=== PATIENT | female | born 1985 | race African-American/Black ===

== ENCOUNTER 2016-12-10 16:54 | Emergency (ER) | payer MEDICAID ==
[~2016-12-10] VITALS: Ht 177.8 cm; Wt 102.5 kg
[2016-12-10 16:56] VITALS: Ht 177.8 cm; Wt 102.5 kg
[2016-12-10] MEDS ORDERED: ONDANSETRON 4 MG INJ IV STA (18:13)
[2016-12-10] MEDS ORDERED: SOD CHLORIDE 0.9% 1,000 ML IV STA (18:13)
[2016-12-10 18:42] LABS: BASOPHILS % 0.3 % (0.0-2.0); EOSINOPHILS % 0.2 % (0.0-7.0); HEMATOCRIT 44.1 % (37.0-47.0); HEMOGLOBIN 14.7 g/dl (12.0-16.0); LYMPHOCYTES # 1.9 10^3/ul (0.8-2.9); MEAN CORPUSCULAR HEMOGLOBIN 29.8 pg (29.0-33.0); MEAN CORPUSCULAR HGB CONC 33.3 g/dl (32.0-37.0); MEAN CORPUSCULAR VOLUME 89.5 fl (82.0-101.0); MEAN PLATELET VOLUME 9.5 fl (7.4-10.4); MONOCYTE # 0.9 10^3/ul (0.3-0.9); MONOCYTES % 8.2 % (0.0-11.0); NEUTROPHIL # 7.6 10^3/ul (1.6-7.5); PLATELET COUNT 329 10^3/UL (140-415); RED BLOOD COUNT 4.93 10^6/ul (4.20-5.40); RED CELL DISTRIBUTION WIDTH 12.9 % (11.5-14.5); WHITE BLOOD COUNT 10.4 10^3/ul (4.8-10.8)
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
[2016-12-10 18:54] LABS: ADD UMIC YES; UR ASCORBIC ACID NEGATIVE (NEGATIVE); UR BACTERIA FEW /HPF (NONE SEEN); UR BILIRUBIN (Dip) NEGATIVE (NEGATIVE); UR BLOOD (Dip) 2+ mg/dL (NEGATIVE); UR CLARITY CLOUDY (CLEAR); UR COLOR YELLOW (YELLOW); UR GLUCOSE (Dip) NEGATIVE (NEGATIVE); UR KETONES (Dip) NEGATIVE (NEGATIVE); UR LEUKOCYTE ESTERASE (Dip) 3+ Leu/ul (NEGATIVE); UR MUCUS FEW /HPF (NONE SEEN); UR NITRITE (Dip) NEGATIVE (NEGATIVE); UR RBC 4 /HPF (0-5); UR SPECIFIC GRAVITY (Dip) 1.016 (1.003-1.030); UR SQUAMOUS EPITHELIAL CELL FEW /HPF (FEW); UR TOTAL PROTEIN (Dip) 2+ mg/dl (NEGATIVE); UR UROBILINOGEN (Dip) NEGATIVE (NEGATIVE); UR WBC CLUMPS FEW /HPF (NONE SEEN)
[2016-12-10 19:01] LABS: ALBUMIN 4.5 g/dl (3.3-4.9); ALBUMIN/GLOBULIN RATIO 1.15; BILIRUBIN,INDIRECT 0.2 mg/dl (0-1.1); BILIRUBIN,TOTAL 0.2 mg/dl (0.2-1.3); CALCIUM 9.8 mg/dl (8.4-10.2); CREATININE 0.96 mg/dl (0.44-1.00); POTASSIUM 3.1 mmol/L (3.5-5.1); TOTAL PROTEIN 8.4 g/dl (6.1-8.1)
[2016-12-10] MEDS ORDERED: POTASSIUM CHLORIDE (SR) 20 MEQ TAB PO STA (19:16)
[2016-12-10] MEDS ORDERED: FAMO-96 PO (19:25)
[2016-12-10] MEDS ORDERED: HYDR-906 PO (19:25)
[2016-12-10] MEDS ORDERED: ONDA8TAB14 PO (19:25)
[2016-12-10] MEDS ORDERED: CEPH-443 PO (19:27)
[2016-12-10] MEDS ORDERED: CEPHALEXIN 500 MG CAP PO ONE (19:30)
[2016-12-10] MEDS ORDERED: FAMOTIDINE 20 MG TAB PO ONE (19:30)
[2016-12-10] MEDS ORDERED: HYDROCODONE/APAP (5/325) TAB PO ONE (19:30)
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
[2016-12-10 20:48] VITALS: BP 135/87; PULSE 92; RESP 14; TEMP 98.9
== END 2016-12-10 22:15 | disposition home or self-care (01) ==
LOC: FTE 16:54
DX: S80.11XA Contusion of right lower leg, initial encounter (principal); S80.12XA Contusion of left lower leg, initial encounter; S40.021A Contusion of right upper arm, initial encounter; S40.022A Contusion of left upper arm, initial encounter; R11.10 Vomiting, unspecified; V49.50XA Passenger injured in collision with unspecified motor vehicles in traffic accident, initial encounter
CPT/HCPCS: 36415; 76705; 80053; 81001; 83690; 85025; 96374; J2405; J7030; Z7502; Z7610

== ENCOUNTER 2016-12-12 00:57 | Emergency (ER) | payer MEDICAID ==
[~2016-12-12] VITALS: Ht 167.6 cm; Wt 102.0 kg
[~2016-12-12 00:57] MED LIST: CEPH-443 PO; FAMO-96 PO; HYDR-906 PO; ONDA8TAB14 PO
[2016-12-12 01:02] VITALS: Ht 167.6 cm; Wt 102.0 kg
[2016-12-12] MEDS ORDERED: ONDANSETRON 4 MG INJ IV STA (01:43)
[2016-12-12] MEDS ORDERED: morphine 4 MG/ML VIAL IV STA (01:43)
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
[2016-12-12] MEDS ORDERED: SOD CHLORIDE 0.9% 100 ML ONE (03:18)
[2016-12-12] MEDS ORDERED: IOHEXOL 300MG/ML 150 ML BTL ONE (03:18)
[2016-12-12 04:05] LABS: ADD UMIC YES; UR ASCORBIC ACID NEGATIVE (NEGATIVE); UR BILIRUBIN (Dip) NEGATIVE (NEGATIVE); UR BLOOD (Dip) 1+ mg/dL (NEGATIVE); UR CLARITY SLIGHTLY CLOUDY (CLEAR); UR COLOR YELLOW (YELLOW); UR GLUCOSE (Dip) NEGATIVE (NEGATIVE); UR KETONES (Dip) TRACE mg/dL (NEGATIVE); UR LEUKOCYTE ESTERASE (Dip) NEGATIVE Leu/ul (NEGATIVE); UR MUCUS FEW /HPF (NONE SEEN); UR NITRITE (Dip) NEGATIVE (NEGATIVE); UR RBC 3 /HPF (0-5); UR SPECIFIC GRAVITY (Dip) 1.016 (1.003-1.030); UR SQUAMOUS EPITHELIAL CELL FEW /HPF (FEW); UR TOTAL PROTEIN (Dip) NEGATIVE (NEGATIVE); UR UROBILINOGEN (Dip) 1+ mg/dL (NEGATIVE)
[2016-12-12 04:17] LABS: BASOPHILS % 0.7 % (0.0-2.0); EOSINOPHILS % 0.3 % (0.0-7.0); HEMATOCRIT 41.7 % (37.0-47.0); HEMOGLOBIN 13.7 g/dl (12.0-16.0); LYMPHOCYTES # 1.9 10^3/ul (0.8-2.9); LYMPHOCYTES % 31.2 % (15.0-51.0); MEAN CORPUSCULAR HEMOGLOBIN 29.2 pg (29.0-33.0); MEAN CORPUSCULAR HGB CONC 32.9 g/dl (32.0-37.0); MEAN CORPUSCULAR VOLUME 88.9 fl (82.0-101.0); MEAN PLATELET VOLUME 9.9 fl (7.4-10.4); MONOCYTE # 0.5 10^3/ul (0.3-0.9); NEUTROPHIL # 3.5 10^3/ul (1.6-7.5); NEUTROPHILS % 58.1 % (39.0-77.0); PLATELET COUNT 329 10^3/UL (140-415); RED BLOOD COUNT 4.69 10^6/ul (4.20-5.40); RED CELL DISTRIBUTION WIDTH 12.7 % (11.5-14.5)
[2016-12-12 05:26] VITALS: TEMP 98.5
[2016-12-12 05:34] LABS: ALBUMIN 4.2 g/dl (3.3-4.9); ALBUMIN/GLOBULIN RATIO 1.2; BILIRUBIN,INDIRECT 0.2 mg/dl (0-1.1); BILIRUBIN,TOTAL 0.2 mg/dl (0.2-1.3); CALCIUM 9.6 mg/dl (8.4-10.2); CREATININE 0.8 mg/dl (0.44-1.00); POTASSIUM 3.6 mmol/L (3.5-5.1); TOTAL PROTEIN 7.7 g/dl (6.1-8.1)
[2016-12-12] MEDS ORDERED: HYDROmorphONE 1 MG/ML SYG IV STA (07:20)
[2016-12-12 07:50] VITALS: BP 122/89; PULSE 75; RESP 17
[2016-12-12] MEDS ORDERED: HYDROmorphONE 1 MG/ML SYG ONE (08:07)
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
--- NOTE | 2016-12-12 09:08 | RADRPT ---
PROCEDURE: CT ABDOMEN/PELVIS WITH CONTRAST CLINICAL INDICATION: 31-year-old female with abdominal pain following trauma. TECHNIQUE: The study was performed utilizing a GE [employer] VCT 64-slice CT scanner. Direct axia l sections were obtained through the abdomen and pelvis with the use of 100 cc of Omnipaque-300 carlos onic intravenous contrast material. Sagittal and coronal reformations were obtained. One or more of the following dose reduction techniques were utilized: automated exposure control, adjustment of the mA and/or kV according to patient's size or use of iterative reconstruction technique. The images were reviewed on a PACS workstation. CTD/vol = 22.4 mGy; Total Exam DLP = 1421.5 mGy-cm. COMPARISON: Ultrasound abdominal FAST scan December 10, 2016. FINDINGS: There is minimal bibasilar subsegmental atelectasis. There is no evidence for significant pleural e ffusion. The liver has a normal size and contour. There is mild diffuse decreased density and heter ogeneous appearance to the anterior aspect of the right lobe of the liver seen best on axial image 3 -42 measuring approximate 3.1 x 3.1 x 4.5 cm consistent with a hepatic contusion/hematoma. This has consistent with AAST organ injury severity scale grade III. No intrahepatic nor extrahepatic biliary ductal dilatation is seen. The gallbladder demonstrates no wall thickening nor pericholecystic flui d. No biliary stones are evident. The pancreas is without areas of abnormal attenuation or contrast enhancement. This spleen is identified and has a normal size without abnormal density or contrast e nhancement. The adrenal glands are unremarkable. The kidneys are functional bilaterally without abno rmal density. No hydroureteronephrosis nor nephroureterolithiasis is evident. The urinary bladder contains urine. There is mild diffuse thickening of the distal esophagus. There is a small hiatal he rnia. There is no evidence for bowel obstruction. There is a small diverticula identified within the mesenteric border of the hepatic flexure without surrounding inflammatory changes. The appendix is visualized and is without edema or surrounding inflammatory reaction. The uterus is elongated and a nteflexed. There is a tampon identified within the vaginal canal. There is no significant free fluid . The aortoiliac vessels are without aneurysmal dilatation. The osseous structures are intact. IMPRESSION: 1. Diffuse decrease heterogeneous density anterior aspect of the right lobe of the liver consisten t with a hepatic contusion/hematoma AAST organ injury severity scale grade III. 2. Mild diffuse thickening of the distal esophagus with a small hiatal hernia. 3. Small solitary hepatic flexure diverticula without surrounding inflammatory changes. 4. Tampon within the vaginal vault. CRITICAL RESULTS: A call report was made to [facility] FRANSISCA Jaime on December 12, 2016 at 04 :49 a.m. .Lon Orta MD, MD Date Time Electronically viewed and signed by .Lon Orta MD, MD on 12/12/2016 04:54 .M/
== END 2016-12-12 14:38 | disposition short-term general hospital (02) ==
LOC: FTE 00:57 → E/R 14:38
DX: S20.211A Contusion of right front wall of thorax, initial encounter (principal); S36.112A Contusion of liver, initial encounter; S06.0X0A Concussion without loss of consciousness, initial encounter; V49.10XA Passenger injured in collision with unspecified motor vehicles in nontraffic accident, initial encounter
CPT/HCPCS: 36415; 70450; 71010; 71100; 74177; 80053; 81001; 83690; 85025; 96374; 96375; J1170; J2270; J2405; Q9967; Z7502; Z7610

== ENCOUNTER 2018-04-24 04:13 | Emergency (ER) | payer MEDICAID ==
[~2018-04-24] VITALS: Ht 180.3 cm; Wt 105.0 kg
[~2018-04-24 04:13] MED LIST changes: +HYDR-4011 PO; -HYDR-906 PO
[2018-04-24 04:20] VITALS: Ht 180.3 cm; Wt 105.0 kg
[2018-04-24] MEDS ORDERED: ONDANSETRON (ODT) 4 MG TAB ODT STA ×2 (04:44→05:10)
[2018-04-24] MEDS ORDERED: D-ME473S2 PO (04:47)
[2018-04-24] MEDS ORDERED: ONDA4TAB14 PO (04:47)
[2018-04-24] MEDS ORDERED: ACET500C5 PO (04:47)
[2018-04-24] MEDS ORDERED: OSEL75CA23 PO (04:47)
--- NOTE | 2018-04-24 04:51 | ERD ---
ER Documentation Chief Complaint Chief Complaint flu like symptoms HPI This is a 32-year-old female who presents ED with flulike symptoms for the past couple days. Patient admits to body aches, headache, fevers, runny nose, cough, congestion and nausea and vomiting. Patient admits to having 2 episodes of nonbilious nonbloody vomiting. Admits to having some chest discomfort with prolonged coughing spell. Denies abdominal pain, chest pain, shortness of breath, trouble breathing and all other symptoms. ROS All systems reviewed and are negative except as per history of present illness. Medications Home Meds Active Scripts Dextromethorphan Hb-Promethazine Hcl* (Promethazine DM* Syrup) 473 Ml Syrup, 5 ML PO Q6 PRN for COUGH for 5 Days, ML Prov:HAMLET DC PA-C 04/24/18 Ondansetron (Ondansetron Odt) 4 Mg Tab.rapdis, 4 MG PO Q6H PRN for NAUSEA AND/OR VOMITING, #10 TAB Prov:HAMLET DC PA-C 04/24/18 Acetaminophen* (Tylophen*) 500 Mg Capsule, 2 CAP PO Q8H PRN for PAIN AND OR ELEVATED TEMP, #20 CAP Prov:HAMLET DC PA-C 04/24/18 Oseltamivir Phosphate* (Tamiflu*) 75 Mg Capsule, 75 MG PO BID for 5 Days, CAP Prov:HAMLET DC PA-C 04/24/18 Cephalexin* (Keflex*) 500 Mg Capsule, 500 MG PO QID for 5 Days, CAP Prov:CLAUDIA PATEL MD 12/10/16 Famotidine* (Pepcid*) 20 Mg Tablet, 20 MG PO BID for 7 Days, #14 TAB Prov:CLAUDIA PATEL MD 12/10/16 Hydrocodone/Acetaminophen ([place] 5-325 Tablet) 1 Each Tablet, 1 TAB PO Q6H PRN for PAIN, #7 TAB Prov:CLAUDIA PATEL MD 12/10/16 Ondansetron (Ondansetron Odt) 8 Mg Tab.rapdis, 8 MG PO Q6H PRN for NAUSEA AND/OR VOMITING, #8 TAB Prov:CLAUDIA PATEL MD 12/10/16 Allergies Allergies: Coded Allergies: bee venom protein (honey bee) (Verified Allergy, Unknown, 04/24/18) codeine (Verified Allergy, Unknown, SWELLING, 04/24/18) PMhx/Soc History of Surgery: Yes (TUBAL X 2 ) Anesthesia Reaction: No Hx Neurological Disorder: No Hx Respiratory Disorders: No Hx Cardiac Disorders: No Hx Psychiatric Problems: No Hx Miscellaneous Medical Probl: No Hx Alcohol Use: Yes (social) Hx Substance Use: No Hx Tobacco Use: No Smoking Status: Current every day smoker FmHx Family History: No diabetes Physical Exam Vitals Vital Signs Date Temp Pulse Resp B/P (MAP) Pulse Ox O2 O2 Flow FiO2 Time Delivery Rate 04/24/18 97.8 116 16 134/95 98 04:20 (108) Physical Exam Physical Exam Vitals signs: Reviewed by me. General: Well developed, well nourished, in no acute distress. Patient is awake and alert. Head: Normocephalic, atraumatic. Eyes: Normal conjunctiva, Pupils PERRLA, EOM intact grossly ENT: Pharynx is clear, Moist mucous membranes, external ears, nose and mouth normal Neck: Supple, no masses, lymphadenopathy or JVD Respiratory: Clear to auscultation bilaterally with no wheezing, rhonchi, rales, no distress Cardiovascular: RRR, no murmurs, rubs, or gallops Abdominal: Soft, non-tender, non-distended, no peritoneal signs : Deferred Neurologic: Alert and oriented, moving all extremities, normal speech, no focal weakness, no cerebellar signs. Normal mentation Skin: warm and dry, No rash Psych: Normal mood Results 24 hrs Current Medications Medications Dose Sig/Noa Start Time Status Last (Trade) Ordered Route PRN Stop Time Admin Dose Reason Admin Ondansetron 4 mg ONCE STAT 04/24/18 DC HCl (Zofran ODT 04:44 Odt) 04/24/18 04:46 Promethazine 5 ml ONCE ONCE 04/24/18 HCl/ PO 05:00 Dextromethorp 04/24/18 05:01 reyes (Phenergan-Dm ) 1,000 mg ONCE STAT 04/24/18 DC Acetaminophen PO 04:44 (Tylenol 04/24/18 04:46 Tab) Procedures/MDM ER COURSE: The patient was given promethazine DM, Tylenol, Zofran The medication was well tolerated and the patient reports improvement in symptoms. The patient was stable throughout ED course. I kept the patient and/or family informed of laboratory and diagnostic imaging results throughout the emergency room course. The patient was promptly evaluated and a treatment plan was devised based on H&P and other data. This plan was discussed with the patient who agreed and had no further questions or concerns prior to discharge. MEDICAL DECISION MAKING: This is a 32-year-old female presents ED with flulike symptoms for LIKE 3 days. Given history and physical examination this is likely influenza.. No evidence of pneumonia. The patient is well-appearing without respiratory distress. Normal oxygen sa turation. X-ray imaging not indicated. The patient does not exhibit any clinical signs or symptoms concerning for serious bacterial infection or systemic illness. Based on history and clinical exam findings the patient does not appear to have evidence of pneumonia, strep pharyngitis, urinary tract infection, bacteremia, sepsis, or meningitis. For these reasons I do not believe it is necessary to obtain laboratory testing or diagnostic imaging. I believe it would be appropriate for symptom control, and close outpatient primary care follow-up. We discussed follow up with the patient's primary care doctor within 24 to 48 hours as needed. We also discussed return to the emergency room for worsening symptoms or worsening condition. DISPOSITION PLAN: We discussed follow up with the patient's primary care doctor within 24 to 48 hours. Patient counseled regarding my diagnostic impression and care plan. Prior to discharge all questions answered. Pt agrees with treatment plan and understands strict return precautions. Precautionary instructions provided including instructions to return to the ER if not improving or for any worsening or changing symptoms or concerns. SPECIALIST FOLLOW UP RECOMMENDED: None Patient has been advised to follow up with primary care in 1-2 days. Disclaimer: Inadvertent spelling and grammatical errors are likely due to EHR/dictation software use and do not reflect on the overall quality of patient care. Also, please note that the electronic time recorded on this note does not necessarily reflect the actual time of the patient encounter. Blood Pressure Assessment: Patient's blood pressure was elevated (>120/80) but appears stable without evidence of hypertension emergency or urgency. The patient was counseled about the risks of hypertension and urged to pursue outpatient monitoring and therapy within a week with their primary care physician. Departure Diagnosis: Primary Impression: Influenza Condition: Stable Patient Instructions: Influenza (Adult) Referrals: COMMUNITY CLINICS YOU HAVE RECEIVED A MEDICAL SCREENING EXAM AND THE RESULTS INDICATE THAT YOU DO NOT HAVE A CONDITION THAT REQUIRES URGENT TREATMENT IN THE EMERGENCY DEPARTMENT. FURTHER EVALUATION AND TREATMENT OF YOUR CONDITION CAN WAIT UNTIL YOU ARE SEEN IN YOUR DOCTORS OFFICE WITHIN THE NEXT 1-2 DAYS. IT IS YOUR RESPONSIBILITY TO MAKE AN APPOINTMENT FOR FOLOW-UP CARE. IF YOU HAVE A PRIMARY DOCTOR --you should call your primary doctor and schedule an appointment IF YOU DO NOT HAVE A PRIMARY DOCTOR YOU CAN CALL OUR PHYSICIAN REFERRAL HOTLINE AT IF YOU CAN NOT AFFORD TO SEE A PHYSICIAN YOU CAN CHOSE FROM THE FOLLOWING [facility] [address] [facility] [address] [facility] [facility] [address] [facility] [address]. [facility] [address] [facility]. [facility] [address] Additional Instructions: Patient advised to return to the ED immediately for new or worsening symptoms. Patient advised to follow up with primary care provider in the next 24-48 hours. Patient verbalized understanding and agrees with treatment plan and course of action. If patient has no primary care they may follow up with one of the [facility] listed on the following page or one of the options listed below [facility] [address] [place] [address] or [facility] [address] [place] [address] or [facility] [address] [place] [address] HAMLET DC PA-C Apr 24, 2018 04:51
[2018-04-24] MEDS ORDERED: PROMETHAZINE/DM (CUP) PO ONE (05:00)
[2018-04-24] MEDS: ACETAMINOPHEN 500 MG TAB PO STA ×2 (05:02→05:07)
[2018-04-24] MEDS ORDERED: METOCLOPRAMIDE 10 MG INJ IM ONE (05:30)
[2018-04-24 05:58] VITALS: BP 131/88; PULSE 108; RESP 22
[2018-04-24] MEDS ORDERED: ONDA4TAB8 PO (09:09)
== END 2018-04-24 06:20 | disposition home or self-care (01) ==
LOC: FTE 04:13
DX: J10.1 Influenza due to other identified influenza virus with other respiratory manifestations (principal); F17.210 Nicotine dependence, cigarettes, uncomplicated
CPT/HCPCS: 96372; J2765; Z7502; Z7610

== ENCOUNTER 2018-04-24 07:41 | Emergency (ER) | payer MEDICAID ==
[~2018-04-24] VITALS: Ht 180.3 cm; Wt 110.2 kg
[~2018-04-24 07:41] MED LIST changes: +ACET500C5 PO; +D-ME473S2 PO; +ONDA4TAB14 PO; +OSEL75CA23 PO
[2018-04-24 07:45] VITALS: Ht 180.3 cm; Wt 110.2 kg
[2018-04-24] MEDS ORDERED: ONDANSETRON 4 MG INJ IV STA (08:22)
[2018-04-24] MEDS ORDERED: SOD CHLORIDE 0.9% 1,000 ML IV STA (08:22)
[2018-04-24] MEDS ORDERED: ONDA4TAB8 PO (09:09)
--- NOTE | 2018-04-24 09:11 | ERD ---
ER Documentation Chief Complaint Chief Complaint FLU LIKE SYMPTOMS, VOMITING, CHEST PAIN X 3 DAYS HPI 32-year-old female presents the emergency department complaining of nausea and vomiting for the last 3 days. Patient states that over the last 3 days, she has had flulike symptoms with body aches myalgias and a nonproductive cough. She has had nonbilious, nonbloody emesis. She reports no localizing abdominal pain. She reports no shortness of breath. She states she continues to feel nauseous and came to the emergency department for evaluation after oral Zofran was not making it better. ROS All systems reviewed and are negative except as per history of present illness. Medications Home Meds Active Scripts Ondansetron Hcl* (Zofran*) 4 Mg Tablet, 4 MG PO Q8H PRN for NAUSEA AND/OR VOMITING, #30 TAB Prov:DINA BENITES 04/24/18 Dextromethorphan Hb-Promethazine Hcl* (Promethazine DM* Syrup) 473 Ml Syrup, 5 ML PO Q6 PRN for COUGH for 5 Days, ML Prov:HAMLET DC PA-C 04/24/18 Ondansetron (Ondansetron Odt) 4 Mg Tab.rapdis, 4 MG PO Q6H PRN for NAUSEA AND/OR VOMITING, #10 TAB Prov:HAMLET DC PA-C 04/24/18 Acetaminophen* (Tylophen*) 500 Mg Capsule, 2 CAP PO Q8H PRN for PAIN AND OR ELEVATED TEMP, #20 CAP Prov:HAMLET DC PA-C 04/24/18 Oseltamivir Phosphate* (Tamiflu*) 75 Mg Capsule, 75 MG PO BID for 5 Days, CAP Prov:HAMLET DC PA-C 04/24/18 Cephalexin* (Keflex*) 500 Mg Capsule, 500 MG PO QID for 5 Days, CAP Prov:CLAUDIA PATEL MD 12/10/16 Famotidine* (Pepcid*) 20 Mg Tablet, 20 MG PO BID for 7 Days, #14 TAB Prov:CLAUDIA PATEL MD 12/10/16 Hydrocodone/Acetaminophen ([place] 5-325 Tablet) 1 Each Tablet, 1 TAB PO Q6H PRN for PAIN, #7 TAB Prov:CLAUDIA PATEL MD 12/10/16 Ondansetron (Ondansetron Odt) 8 Mg Tab.rapdis, 8 MG PO Q6H PRN for NAUSEA AND/OR VOMITING, #8 TAB Prov:CLAUDIA PATEL MD 12/10/16 Allergies Allergies: Coded Allergies: bee venom protein (honey bee) (Verified Allergy, Unknown, 04/24/18) codeine (Verified Allergy, Unknown, SWELLING, 04/24/18) PMhx/Soc History of Surgery: Yes (TUBAL X 2; oophorectomy ) Anesthesia Reaction: No Hx Neurological Disorder: No Hx Respiratory Disorders: No Hx Cardiac Disorders: No Hx Psychiatric Problems: No Hx Miscellaneous Medical Probl: No Hx Alcohol Use: Yes (social) Hx Substance Use: Yes (marijuana) Hx Tobacco Use: Yes (occasional) Smoking Status: Current some day smoker FmHx Multiple sick contacts at home Physical Exam Vitals Vital Signs Date Temp Pulse Resp B/P (MAP) Pulse Ox O2 O2 Flow FiO2 Time Delivery Rate 04/24/18 116 26 133/86 98 Room Air 08:15 (102) 04/24/18 98.1 110 20 128/94 98 07:45 (105) Physical Exam GENERAL: The patient is well developed and appropriate for usual state of health in no apparent distress HEENT: Pupils equal, round, and reactive to light. EOMI. There is no scleral icterus. NECK: C-spine is soft and supple, there is no meningismus. There is no cervical lymphadenopathy. LUNGS: Clear to auscultation bilaterally. There are no rales, wheezes or rhonchi. HEART: Regular rate and rhythm, no murmurs, clicks, rubs or gallops. ABDOMEN: Soft, non-tender, non-distended. There are bowel sounds in all four quadrants. No rebound or guarding. EXTREMITIES: There is no peripheral cyanosis or edema. No focal swelling or erythema. NEURO: The patient moves all four extremities with 5/5 strength. Cranial nerves II - XII are intact. Normal gait. Alert and oriented SKIN: There is no apparent rash or petechiae. HEME/LYMPHATIC: There is no evidence of excessive bruising or lymphedema. PSYCHIATRIC: The patient does not appear anxious or depressed. Result Diagram: 04/24/18 0822 04/24/18 0830 Results 24 hrs Laboratory Tests Test 04/24/18 08:18 04/24/18 08:22 04/24/18 08:30 POC Beta HCG, Qualitative NEGATIVE White Blood Count 10.3 10^3/ul Red Blood Count 5.14 10^6/ul Hemoglobin 15.4 g/dl Hematocrit 46.9 % Mean Corpuscular Volume 91.2 fl Mean Corpuscular Hemoglobin 30.0 pg Mean Corpuscular 32.8 g/dl Hemoglobin Concent Red Cell Distribution Width 12.9 % Platelet Count 290 10^3/UL Mean Platelet Volume 10.3 fl Immature Granulocytes % 0.300 % Neutrophils % 72.1 % Lymphocytes % 15.5 % Monocytes % 11.1 % Eosinophils % 0.2 % Basophils % 0.8 % Nucleated Red Blood Cells % 0.0 /100WBC Immature Granulocytes # 0.030 10^3/ul Neutrophils # 7.4 10^3/ul Lymphocytes # 1.6 10^3/ul Monocytes # 1.1 10^3/ul Eosinophils # 0.0 10^3/ul Basophils # 0.1 10^3/ul Nucleated Red Blood Cells # 0.0 10^3/ul Sodium Level 141 mmol/L Potassium Level 5.8 mmol/L Chloride Level 101 mmol/L Carbon Dioxide Level 24 mmol/L Anion Gap 16 Blood Urea Nitrogen 13 mg/dl Creatinine 0.80 mg/dl Est Glomerular Filtrat Rate mL/min > 60 mL/min Glucose Level 81 mg/dl Calcium Level 9.7 mg/dl Current Medications Medications Dose Sig/Noa Start Time Status Last (Trade) Ordered Route PRN Stop Time Admin Dose Reason Admin Sodium 1,000 ml @ Q1H STAT 04/24/18 04/24/18 Chloride 1,000 mls/hr IV 08:22 08:35 04/24/18 09:21 Ondansetron 4 mg ONCE STAT 04/24/18 DC 04/24/18 HCl (Zofran IV 08:22 08:35 Inj) 04/24/18 08:24 Procedures/MDM Patient was taken to a room, seen and evaluated. Comfort measures were initiated. Diagnostic tests were ordered and reviewed. RADIOLOGY: Reviewed with the radiologist REEVALUATION: Diagnostic tests were appreciated. After hydration, patient appeared better. She remained stable. MEDICAL DECISION MAKIN-year-old otherwise healthy female presents with what appears to be a viral syndrome. After supportive care, patient seems to be improved. Her diagnostic tests show no evidence of significant electrolyte concern, no evidence of severe dehydration, no evidence of pneumonia. Departure Diagnosis: Primary Impression: Viral syndrome Condition: Stable Patient Instructions: Nausea and Vomiting-Adult, Viral Syndrome (Adult) Additional Instructions: See your doctor for follow-up as discussed. Take a copy of your test results, if appropriate, to this follow-up visit. See your doctor or return here if your symptoms do not improve as expected. At any time, please return to the emergency department for any change or worsening in her symptoms. DINA BENITES Apr 24, 2018 09:11
[2018-04-24 09:24] VITALS: BP 119/90; PULSE 89; RESP 17
== END 2018-04-24 09:26 | disposition home or self-care (01) ==
LOC: E/R 07:41
DX: B34.9 Viral infection, unspecified (principal); F17.210 Nicotine dependence, cigarettes, uncomplicated
CPT/HCPCS: 36415; 71045; 80048; 81025; 85025; 93005; 96361; 96374; J2405; J7030; Z7502

== ENCOUNTER 2018-06-27 01:41 | Emergency (ER) | payer SELFPAY ==
[~2018-06-27] VITALS: Ht 180.3 cm; Wt 105.9 kg
[~2018-06-27 01:41] MED LIST changes: +ONDA4TAB8 PO
[2018-06-27 01:49] VITALS: BP 141/57; PULSE 109; RESP 16; Ht 180.3 cm; Wt 105.9 kg
[2018-06-27] MEDS ORDERED: ONDA4TAB14 PO (18:28)
== END 2018-06-27 03:30 | disposition left against medical advice (07) ==
LOC: FTE 01:41
DX: Z53.21 Procedure and treatment not carried out due to patient leaving prior to being seen by health care provider (principal)

== ENCOUNTER 2018-06-27 13:40 | Emergency (ER) | payer MEDICAID ==
[~2018-06-27] VITALS: Ht 180.3 cm; Wt 106.5 kg
[2018-06-27 13:47] VITALS: Ht 180.3 cm; Wt 106.5 kg
[2018-06-27] MEDS ORDERED: ONDANSETRON (ODT) 4 MG TAB ODT STA (18:14)
[2018-06-27] MEDS ORDERED: ONDA4TAB14 PO (18:28)
[2018-06-27] MEDS ORDERED: LIDOCAINE/MYLANTA 40 ML BTL PO ONE (18:30)
[2018-06-27 18:56] VITALS: BP 135/86; PULSE 91; RESP 18
--- NOTE | 2018-06-27 19:13 | ERD ---
ER Documentation Chief Complaint Chief Complaint Vomiting, weakness X 2 days HPI Patient is a 32-year-old female with no medical problems who presents feeling sick. She said that she has felt sick for the past 2 days. She had nausea and vomiting. She was shaking. She says that she cannot keep anything down. She tried [place]. She has subjective chills but no fevers. She has diarrhea as well. She has no sick contacts. Upon review of old medical records the patient has multiple visits to the ER for various complaints. She does not currently have a primary doctor. ROS All systems reviewed and are negative except as per history of present illness. Medications Home Meds Active Scripts Ondansetron (Ondansetron Odt) 4 Mg Tab.rapdis, 4 MG PO Q6H PRN for NAUSEA AND/OR VOMITING, #10 TAB Prov:BARBER CASTILLO MD 06/27/18 Ondansetron Hcl* (Zofran*) 4 Mg Tablet, 4 MG PO Q8H PRN for NAUSEA AND/OR VOMITING, #30 TAB Prov:DINA BENITES 04/24/18 Dextromethorphan Hb-Promethazine Hcl* (Promethazine DM* Syrup) 473 Ml Syrup, 5 ML PO Q6 PRN for COUGH for 5 Days, ML Prov:HAMLET DC PA-C 04/24/18 Ondansetron (Ondansetron Odt) 4 Mg Tab.rapdis, 4 MG PO Q6H PRN for NAUSEA AND/OR VOMITING, #10 TAB Prov:HAMLET DC PA-C 04/24/18 Acetaminophen* (Tylophen*) 500 Mg Capsule, 2 CAP PO Q8H PRN for PAIN AND OR ELEV ATED TEMP, #20 CAP Prov:HAMLET DC PA-C 04/24/18 Oseltamivir Phosphate* (Tamiflu*) 75 Mg Capsule, 75 MG PO BID for 5 Days, CAP Prov:HAMLET DC PA-C 04/24/18 Cephalexin* (Keflex*) 500 Mg Capsule, 500 MG PO QID for 5 Days, CAP Prov:CLAUDIA PATEL MD 12/10/16 Famotidine* (Pepcid*) 20 Mg Tablet, 20 MG PO BID for 7 Days, #14 TAB Prov:CLAUDIA PATEL MD 12/10/16 Hydrocodone/Acetaminophen ([place] 5-325 Tablet) 1 Each Tablet, 1 TAB PO Q6H PRN for PAIN, #7 TAB Prov:CLAUDIA PATEL MD 12/10/16 Ondansetron (Ondansetron Odt) 8 Mg Tab.rapdis, 8 MG PO Q6H PRN for NAUSEA AND/OR VOMITING, #8 TAB Prov:CLAUDIA PATEL MD 12/10/16 Allergies Allergies: Coded Allergies: bee venom protein (honey bee) (Verified Allergy, Unknown, 04/24/18) codeine (Verified Allergy, Unknown, SWELLING, 04/24/18) PMhx/Soc History of Surgery: Yes (TUBAL X 2; oophorectomy ) Anesthesia Reaction: No Hx Neurological Disorder: No Hx Respiratory Disorders: No Hx Cardiac Disorders: No Hx Psychiatric Problems: No Hx Miscellaneous Medical Probl: No Hx Alcohol Use: Yes (social) Hx Substance Use: Yes (marijuana) Hx Tobacco Use: Yes (occasional) Smoking Status: Current every day smoker FmHx Family History: diabetes Physical Exam Vitals Vital Signs Date Temp Pulse Resp B/P (MAP) Pulse Ox O2 O2 Flow FiO2 Time Delivery Rate 06/27/18 99.9 91 18 135/86 98 Room Air 18:56 (102) 06/27/18 98.2 104 18 139/88 98 13:47 (105) Physical Exam Const: No acute distress Head: Atraumatic Eyes: Normal Conjunctiva ENT: Normal External Ears, Nose and Mouth. Neck: Full range of motion. No meningismus. Resp: Clear to auscultation bilaterally Cardio: Regular rate and rhythm, no murmurs Abd: Soft, non tender, non distended. Normal bowel sounds Skin: No petechiae or rashes Back: No midline or flank tenderness Ext: No cyanosis, or edema Neur: Awake and alert Psych: Normal Mood and Affect Results 24 hrs Laboratory Tests Test 06/27/18 18:27 POC Beta HCG, Qualitative NEGATIVE Current Medications Medications Dose Sig/Noa Start Time Status Last (Trade) Ordered Route PRN Stop Time Admin Dose Reason Admin Ondansetron 4 mg ONCE STAT 06/27/18 DC 06/27/18 HCl (Zofran ODT 18:14 06/27/18 18:35 Odt) 18:15 40 ml ONCE ONCE 06/27/18 DC 06/27/18 Miscellaneous PO 18:30 06/27/18 18:35 Medication 18:31 (Gi Cocktail (2)) Procedures/MDM Patient is a 32-year-old female who presents with nausea and vomiting. The patient is well-appearing with a normal physical exam. Urine test is negative and I doubt or ectopic . I doubt appendicitis, cholecystitis, pancreatitis, or bowel obstruction. The patient will be discharged and can take ibuprofen or Tylenol as needed for pain. She will be given a prescription for Zofran. She can return for any worsening symptoms. I believe the patient likely has a viral syndrome. Departure Diagnosis: Primary Impression: Viral syndrome Additional Impression: Vomiting Vomiting type: unspecified Vomiting Intractability: non-intractable Nausea presence: with nausea Qualified Codes: R11.2 - Nausea with vomiting, unspecified Condition: Fair Patient Instructions: Vomiting (5Y-Adult) Referrals: [facility] YOU HAVE RECEIVED A MEDICAL SCREENING EXAM AND THE RESULTS INDICATE THAT YOU DO NOT HAVE A CONDITION THAT REQUIRES URGENT TREATMENT IN THE EMERGENCY DEPARTMENT. FURTHER EVALUATION AND TREATMENT OF YOUR CONDITION CAN WAIT UNTIL YOU ARE SEEN IN YOUR DOCTORS OFFICE WITHIN THE NEXT 1-2 DAYS. IT IS YOUR RESPONSIBILITY TO MAKE AN APPOINTMENT FOR FOLOW-UP CARE. IF YOU HAVE A PRIMARY DOCTOR --you should call your primary doctor and schedule an appointment IF YOU DO NOT HAVE A PRIMARY DOCTOR YOU CAN CALL OUR PHYSICIAN REFERRAL HOTLINE AT IF YOU CAN NOT AFFORD TO SEE A PHYSICIAN YOU CAN CHOSE FROM THE FOLLOWING [facility]ICS [facility] [address] [facility] [address] [employer] [facility] [address] [facility] [address] [facility]. [facility] [address] [facility]. [facility]. [address] Additional Instructions: Call your primary care doctor TOMORROW for an appointment during the next 1-2 days.See the doctor sooner or return here if your condition worsens before your appointment time. BARBER CASTILLO MD Jun 27, 2018 19:13
== END 2018-06-27 18:58 | disposition home or self-care (01) ==
LOC: FTE 13:40
DX: B34.9 Viral infection, unspecified (principal); F17.210 Nicotine dependence, cigarettes, uncomplicated
CPT/HCPCS: 81025; Z7502; Z7610; 99283